=== PATIENT | male | born 1980 | race Caucasian/White ===

== ENCOUNTER 2021-11-24 17:15 | Emergency (ER) | payer SELFPAY ==
[2021-11-24 18:08] VITALS: BP 131/85; PULSE 102; RESP 21; TEMP 37.2; O2SAT 98; BMI 24.7
--- NOTE | 2021-11-24 18:37 | HMH.EDUTC ---
[facility] [place] Clinical Impression: Viral upper respiratory tract infection with cough Disposition: Home, Self-Care Condition on Discharge: Good Instructions: Cough, DI for COVID-19 (Suspected or Confirmed ), Preventing the Spread of Coronavirus Discharge Instructions Additional Instructions: *Monitor Temp, Over the counter Motrin or Tylenol as directed/as needed Tylenol every 4 hours and Motrin every 6 hours (as long as your family doctor has told you that you can take it) for fever or pain. and straight to ER if unable to lower temp less than 101.0 after medication given *Warm salt water gargles may help to soothe the throat *Throat Lozenges *Warm fluids like tea with honey may help to soothe the throat *Sleep elevated *Humidifier/Vaporizer Follow up IMMEDIATELY for new or worsening symptoms or no Noticeable improvement over the next 48-72 hours. 911 for difficulty breathing or swallowing You were tested for today for COVID19 your test result should be back in the next 24-48 hours, you may check your results on the [facility] My Health portal Make sure to take your Vitamins Vit. C Vit D and Zinc if you can take them Prescriptions: Albuterol Sulfate [Albuterol 0.083% 2.5mg/3mL neb] 2.5 mg IH Q4-6H PRN #30 each PRN Reason: Shortness Of Breath Transmission Status: Pending to [facility] Ibuprofen [Ibuprofen 800mg Tablet] 800 mg PO TIDP PRN #20 tab PRN Reason: Moderate Pain Transmission Status: Pending to [facility] guaiFENesin [Mucinex 600mg tablet] 600 mg PO BID PRN #20 tab PRN Reason: Congestion [facility] Referrals: Provider,Referral, [Primary Care Provider] - As needed Forms: Work/School Release Time of Disposition: 18:49 Medical Decision Making - Jarad Inquiry Pt receiving controlled substance: No Jarad was queried for this patient: No Vital Signs: 11/24/21 18:08 Temperature 98.9 F Temperature Source Oral Pulse Rate [Radial] 102 H Respiratory Rate 21 Blood Pressure [Right Arm] 131/85 Blood Pressure Mean [Right Arm] 100 Blood Pressure Source [Right Arm] Automatic Cuff Blood Pressure Position [Right Arm] Sitting 02 Sat by Pulse Oximetry 98 Oxygen Delivery Method Room Air Orders (Tests/Meds): ORDERS Category Date Time Status Covid-19 Nasal PCR ([facility]) Routine Lab 11/24/21 18:10 Received [facility] [place] - General Stated complaint: COVID TEST, COUGH CONGESTION v&d Time Seen by Provider: 11/24/21 18:37 Mode of Arrival: Ambulatory Source of Information: Patient Limitations: No Limitations Description of Symptoms (Recalled from Triage Doc. by RN): COUGH, FEVER, BODY ACHES, CHEST CONGESTION X 4 DAYS HEENT Symptoms (Recalled from RN notes): Yes Resp Symptoms (Recalled from RN notes): No Skin Symptoms (Recalled from RN notes): No MS Symptoms (Recalled from RN notes): Yes Functional Status (Recalled from RN notes): N/A - History of Present Illness Provider Complaint: Patient state that he has been having cough, fever, body aches, nasal congestion and chest congestion for about 4 days States that COVID is going around at work and not sure if he may have it now or not and wanted to get tested States that he is also out of his albuterol for his nebulizer and wanted to see if he could get some and ibuprofen for his fever - Related Data Previous Rx's Medication Instructions Recorded Albuterol Sulfate [Albuterol 2.5 mg IH Q4-6H PRN #30 each 11/24/21 0.083% 2.5mg/3mL neb] Ibuprofen [Ibuprofen 800mg 800 mg PO TIDP PRN #20 tab 11/24/21 Tablet] guaiFENesin [Mucinex 600mg tablet] 600 mg PO BID PRN #20 tab 11/24/21 Allergies Allergy/AdvReac Type Severity Reaction Status Date / Time NKDA - NO KNOWN DRUG Allergy Unknown Uncoded 04/17/17 15:41 ALLERGIES - Worker's Comp Is this a Worker's Comp case?: No [facility] History - Hepatitis A Screen Attestation statement:: This patient has been screened
[2021-11-24 18:57] VITALS: BP 131/85; PULSE 100; RESP 20; TEMP 37; O2SAT 98
== END 2021-11-24 18:58 | disposition home or self-care (01) ==
PROVIDERS: Emergency Provider Nurse Practitioner
DX: J06.9 Acute upper respiratory infection, unspecified (principal)
CPT/HCPCS: 99212; C9803; G0463; U0003; U0005

== ENCOUNTER 2021-12-04 17:20 | Emergency (ER) | payer SELFPAY ==
[2021-12-04 17:50] VITALS: BP 136/85; PULSE 81; RESP 19; TEMP 37; O2SAT 96; BMI 23.2
--- NOTE | 2021-12-04 18:25 | HMH.EDUTC ---
[facility] [place] Clinical Impression: Dental abscess Disposition: Home, Self-Care Condition on Discharge: Good Instructions: Tooth Abscess, Amoxicillin and Clavulanic Acid Additional Instructions: Use dental balls as you was instructed in the [facility] today Take medication as prescribed Follow up with Dentist for further treatment and evaluation Return if needed Straight to ER if any life threatening symptoms Prescriptions: Ibuprofen [Ibuprofen 800mg Tablet] 800 mg PO Q8HP PRN #20 tab PRN Reason: Moderate Pain Transmission Status: [facility] Amoxicillin/Potassium Clav [Amox-Clav 875-125 mg Tablet] 1 tab PO BID #20 tab Transmission Status: [facility] Referrals: Provider,Referral, MD [Primary Care Provider] - As needed Medical Decision Making - Jarad Inquiry Pt receiving controlled substance: No Jarad was queried for this patient: No Vital Signs: 12/04/21 17:50 Temperature 98.6 F Temperature Source Oral Pulse Rate [Left Brachial] 81 Respiratory Rate 19 Blood Pressure [Left Arm] 136/85 Blood Pressure Mean [Left Arm] 102 Blood Pressure Source [Left Arm] Automatic Cuff Blood Pressure Position [Left Arm] Sitting 02 Sat by Pulse Oximetry 96 Oxygen Delivery Method Room Air [facility] [place] - General Stated complaint: dental pain Time Seen by Provider: 12/04/21 18:25 Mode of Arrival: Ambulatory Source of Information: Patient Limitations: No Limitations Description of Symptoms (Recalled from Triage Doc. by RN): PATIENT STATES HE HAS 2 BAD TEETH (BOTTOM AND TOP) AND IS C/O DENTAL PAIN X 3 DAYS HEENT Symptoms (Recalled from RN notes): Yes Resp Symptoms (Recalled from RN notes): No Skin Symptoms (Recalled from RN notes): No MS Symptoms (Recalled from RN notes): No Functional Status (Recalled from RN notes): WNL - History of Present Illness Provider Complaint: patient states that he has two broken bad teeth on his right lower gum States that for the last 3 days the pain has got worse and he feels like his teeth are getting infected so he came in to see if he could get something until he can get into the dentist - Related Data Home Medications Medication Instructions Recorded Confirmed Buprenorphine HCl/Naloxone HCl 2 each SL DAILY 12/04/21 12/04/21 [Suboxone 8mg/2mg ODT] Previous Rx's Medication Instructions Recorded Amoxicillin/Potassium Clav 1 tab PO BID #20 tab 12/04/21 [Amox-Clav 875-125 mg Tablet] Ibuprofen [Ibuprofen 800mg 800 mg PO Q8HP PRN #20 tab 12/04/21 Tablet] Allergies Allergy/AdvReac Type Severity Reaction Status Date / Time No Known Allergies Allergy Verified 12/04/21 18:05 - Worker's Comp Is this a Worker's Comp case?: No H History - Hepatitis A Screen Attestation statement:: This patient has been screened for Hepatitis A risk factors. I have reviewed the patient's past medical history: Yes ROS Obtained: Yes All systems reviewed & no additional complaints, Yes Systems reviewed as appropriate & no additional complaints - Constitutional Constitutional: Reports system reviewed and no additional complaints, except as docu, Denies fever(s) - ENT Ears, Nose, Mouth, and Throat: Reports system reviewed and no additional complaints, except as docu, Reports dental pain - Cardiovascular Cardiovascular: Reports system reviewed and no additional complaints, except as docu - Respiratory Respiratory: Reports system reviewed and no additional complaints, except as docu - Gastrointestinal Gastrointestingal: Reports: system reviewed and no additional complaints, except as docu Physical Exam - General General appearance: alert, in no apparent distress - Expanded ENT Exam Teeth exam: Present: dental caries, gingival swelling, other (several broken decaying teeth noted on right lower gumline) - Respiratory Respiratory exam: Present: normal lung sounds bilaterally. Absent: respiratory distress - Ca
[2021-12-04 18:34] VITALS: BP 136/85; PULSE 81; RESP 19; TEMP 37; O2SAT 96
== END 2021-12-04 18:42 | disposition home or self-care (01) ==
PROVIDERS: Emergency Provider Nurse Practitioner
DX: K04.7 Periapical abscess without sinus (principal)
CPT/HCPCS: 99212; G0463

== ENCOUNTER 2022-12-10 14:16 | Emergency (ER) | payer MEDICARE, OTHER, SELFPAY ==
[2022-12-10 14:18] VITALS: BP 126/75; PULSE 66; RESP 16; TEMP 36.7; O2SAT 98; BMI 24.3
[2022-12-10 15:06] LABS: Coronavirus 19, PCR Not Detected (NotDetected); Influenza A, PCR Not Detected (NotDetected); Influenza B, PCR Not Detected (NotDetected)
[2022-12-10 15:26] LABS: Strep Scrn Group A (Rapid) Negative (Negative)
--- NOTE | 2022-12-10 16:16 | PC.NURSE ---
Patient arrived to room
--- NOTE | 2022-12-10 16:18 | PC.NURSE ---
Rounded on patient; call martinez within reach. Updated on plan of care nothing needed at this time
--- NOTE | 2022-12-10 16:19 | HMH.EDGENADL ---
Discharge Plan Disposition Patient Disposition: Home, Self-Care Condition: Good Prescriptions Prescriptions: New guanfacine 1 mg tablet extended release 24 hr 1 mg PO DAILY Qty: 7 0RF No Action buprenorphine-naloxone 1 EACH tablet, sublingual 2 each SL DAILY ibuprofen 800 MG tablet 800 mg PO Q8HP PRN (Reason: Moderate Pain) Qty: 20 0RF amoxicillin-pot clavulanate 1 EACH tablet 1 tab PO BID Qty: 20 0RF Referrals Follow up/Referrals: Provider,Referral, MD [Primary Care Provider] - See instructions Clinical Impressions Clinical Impression: Viral upper respiratory tract infection with cough Discharge ED Provider: Gino Burton General Adult HPI General Chief complaint: Upper Respiratory Infection Stated complaint: cough, fever, cold sweats,chills Time Seen by Provider: 12/10/22 16:19 Mode of Arrival: Ambulatory Source of Information: Patient Limitations: No Limitations Description of Symptoms (Recalled from ER Triage Doc. by RN): Presents to ED with c/o of cough/sore throat/fever/bodyaches x3 days. Patient reports taking Tylenol @ approx. 1200 but unsure of the amount. Denies N/V/D. History of Present Illness HPI narrative: Patient presents for evaluation of sore throat, chills, mild frontal headache, malaise for 3 days, no known sick contacts, no globus sensation, no odynophagia, no respiratory distress, has not had similar symptoms before, does describe smoking history. Chief complaint at this time is frequent cough that is nonproductive, denies chronic medical issues. Has been able to tolerate p.o., no nuchal rigidity or dental pain or pain elsewhere. Related Data Home Medications Medication Instructions Recorded Confirmed buprenorphine 8 mg-naloxone 2 mg 2 each sublingual DAILY . 12/04/21 12/04/21 sublingual tablet Previous Rx's Medication Instructions Recorded amoxicillin 875 mg-potassium 1 tab PO BID #20 tabs 12/04/21 clavulanate 125 mg tablet ibuprofen 800 mg tablet 800 mg PO Q8HP PRN Moderate Pain 12/04/21 #20 tabs guanfacine 1 mg tablet,extended 1 mg PO DAILY #7 tabs 12/10/22 release 24 hr Allergies Allergy/AdvReac Type Severity Reaction Status Date / Time No Known Allergies Allergy Verified 12/04/21 18:05 [facility] Disclaimer: The information contained in this section may have been updated after the patient was seen, as this information can be updated by other users. Social History Smoking Status: Current every day smoker alcohol intake: current current occupational status: employed Travel in the last 8 weeks: None ROS Obtained: Yes Systems reviewed as appropriate & no additional complaints except as documented Physical Exam General General appearance: alert and in no apparent distress Head Head exam: atraumatic and normocephalic Eye Eye exam: Present normal appearance ENT ENT exam: Present other (Mild oropharyngeal erythema) Neck Neck exam: Present normal inspection Chest Chest inspection: Present normal inspection and symmetric chest wall rise Respiratory Respiratory exam: Present normal lung sounds bilaterally; Absent respiratory distress Cardiovascular Cardiovascular exam: Present regular rate and normal rhythm Abdominal Exam Abdominal exam: Present soft Neurological Exam Neurological exam: Present alert and oriented X3 Psychiatric Psychiatric exam: Present normal affect and normal mood Skin Skin exam: Present warm and dry Medical Decision Making Medical Records Medical records reviewed: Yes I reviewed the patient's medical records. Jarad Inquiry Pt receiving controlled substance: No Vital Signs: 12/10/22 14:18 12/10/22 16:52 12/10/22 16:52 Temperature 98.1 F Temperature Source Oral Pulse Rate 78 81 Pulse Rate [Right] 66 Respiratory Rate 16 Blood Pressure Blood Pressure [Left Arm] 126/75 Blood Pressure Mean [Left Arm] 92 Blood Pressure Source Blood Pressure Source [Left Arm] Automatic Cuff Blood Pressure Position Blood Pressure Position [Left Arm] Sitting 02 Sat by Pulse Oximetry 98 Oxygen Delivery Method Room Air 12/10/22 17:46 Temperature 98.1 F Temperature Source Oral Pulse Rate 64 Pulse Rate [Right] Respiratory Rate 18 Blood Pressure 131/89 Blood Pressure [Left Arm] Blood Pressure Mean [Left Arm] Blood Pressure Source Automatic Cuff Blood Pressure Source [Left Arm] Blood Pressure Position Sitting Blood Pressure Position [Left Arm] 02 Sat by Pulse Oximetry Oxygen Delivery Method Room Air Lab Data Lab Results 12/10/22 14:57: SARS-CoV-2 (PCR) Not detected, Influenza A Untype (PCR) Not detected, Influenza Type B (PCR) Not detected, Group A Strep Rapid Negative Orders (Tests/Meds): ED MEDICATIONS Discontinued Medications Generic Name Dose Route Start Last Admin Trade Name Freq PRN Reason Stop Dose Admin Albuterol/Ipratropium 3 ml 12/10/22 16:34 12/10/22 16:51 Ipratropium/Albuterol 3 Ml Neb IH 12/10/22 16:35 3 ml ONCE ONE Administration ORDERS Category Date Time Status CXR 2 view (NOT portable) [XR chest 2V] Stat Exams 12/10/22 16:34 Completed Rapid PCR Covid and Flu A/B Stat Lab 12/10/22 14:57 Completed Rapid Strep Scrn Group A [Strep Scrn Group A (Rapid)] Lab 12/10/22 14:57 Completed Stat Strep Screen Confirmation Stat Micro 12/10/22 14:57 Received Medical Decision Narrative: Patient with history and exam per above presenting for evaluation of several upper respiratory symptoms, with mild oropharyngeal erythema, no evidence of peritonsillar abscess, no respiratory distress, lungs clear to auscultation Diagnoses considered include bronchitis, viral URI, peritonsillar abscess, strep pharyngitis, deep space abscess ED workup/treatment included: COVID test, chest x-ray, flu test, strep swab Labs independently interpreted by me, significant for no acute findings Imaging was independently visualized and interpreted by me, significant for no acute findings Symptoms at this time are thought to be most consistent with other unspecified viral URI, otherwise nontoxic-appearing, no focal consolidation or evidence of deep space abscess I discussed my clinical impression with patient and answered all questions. At this time, given reassuring workup and exam, I discussed that I have a low index of suspicion for any acute pathology necessitating inpatient management. Specific return precautions were given, with understanding and agreement. Patient will follow up with primary care provider as needed. I prescribed the following medications upon discharge: Guanfacine 1 mg p.o. daily x7 Critical Care Time Critical Care Time Critical Care Time: No Attestation: On 12/10/22, the high probability of a clinically significant, sudden or life threatening deterioration of the following system(s) required my full and direct attention, intervention and personal management. The time I documented below is in addition to time spent performing reported procedures but includes the following listed in this critical care notation.
--- NOTE | 2022-12-10 16:34 | XR_ITS ---
PROCEDURE INFORMATION: Exam: XR Chest Exam date and time: 12/10/2022 4:41 PM Age: 42 years old Clinical indication: Cough and shortness of breath; Patient HX: Shortness of breath and cough for 3 days. Smoker. ; Additional info: SOA, cough TECHNIQUE: Imaging protocol: Radiologic exam of the chest. Views: 1 view. COMPARISON: No relevant prior studies available. FINDINGS: Lungs: Unremarkable. No consolidation. Pleural spaces: Unremarkable. No pleural effusion. No pneumothorax. Heart/Mediastinum: Unremarkable. No cardiomegaly. Bones/joints: Unremarkable. IMPRESSION: No acute findings.
--- NOTE | 2022-12-10 16:38 | PC.NURSE ---
RESP CALLED FOR DUO NEB
--- NOTE | 2022-12-10 16:48 | PC.NURSE ---
RAD taking patient to XR
[2022-12-10] MEDS: IPRATROPIUM/ALBUTEROL 3 ML NEB IH (16:51)
[2022-12-10 16:52] VITALS: PULSE 78; PULSE 81
--- NOTE | 2022-12-10 16:53 | PC.NURSE ---
pt return from xray
[2022-12-10 17:46] VITALS: BP 131/89; PULSE 64; RESP 18; TEMP 36.7; O2SAT 98
== END 2022-12-10 17:47 | disposition home or self-care (01) ==
PROVIDERS: Emergency Medicine; Emergency Provider Emergency Medicine
DX: R50.9 Fever, unspecified (principal); J06.9 Acute upper respiratory infection, unspecified; R51.9 Headache, unspecified; F17.200 Nicotine dependence, unspecified, uncomplicated
CPT/HCPCS: 71046; 87430; 87636; 99284

== ENCOUNTER → 2023-02-16 15:41 | Outpatient (CLI) | payer OTHER, MEDICARE, SELFPAY ==
--- NOTE | 2023-02-16 15:52 | MR_ITS ---
PROCEDURE INFORMATION: Exam: MR Right Upper Extremity Joint Without and With Contrast; Wrist Exam date and time: 02/16/2023 4:05 PM Age: 42 years old Clinical indication: Pain; Wrist; Right; Additional info: Ganglion cyst of right wrist. No palpable mass. Wrist pain TECHNIQUE: Imaging protocol: Magnetic resonance imaging of the right upper extremity without and with contrast. Exam focused on the wrist. Contrast material: PROHANCE; Contrast volume: 20 ml; Contrast route: IV; COMPARISON: No relevant prior studies available. FINDINGS: Limitations: The symptomatic region of the wrist was not indicated. Bones/joints: A mild effusion involves the fifth carpometacarpal joint. A mild amount of fluid is present in the pisiform recess. There are multifocal trace joint effusions. There is no acute fracture or dislocation. No aggressive bone lesions are present. Scapholunate ligament: Unremarkable. No tear. Lunotriquetral ligament: Unremarkable. No tear. Triangular fibrocartilage complex: Unremarkable. No tear. Flexor compartment tendons: Unremarkable. No tear. Extensor compartment tendons: A short-segment longitudinal tear involves the extensor carpi ulnaris tendon at the level of the proximal carpal row. Soft tissues: A tubular focus of fluid along the ulnar border of the hamate may represent a small ganglion or synovial cyst this collection measures 0.9 x 0.3 cm (series 9/images 6-7 and series 7/images 8-11). IMPRESSION: 1. Short-segment longitudinal tear of the extensor carpi ulnaris tendon at the level of the proximal carpal row. 2. Tubular focus of fluid along the ulnar border of the hamate measuring 0.9 x 0.3 cm that may represent a small ganglion or synovial cyst.
== END ==
PROVIDERS: Visit Provider Orthopaedic Surgery Hand Surgery
DX: M67.431 Ganglion, right wrist (principal)
CPT/HCPCS: 73223; A9576

== ENCOUNTER 2023-11-11 21:36 | Emergency (ER) | payer MEDICARE, SELFPAY ==
--- NOTE | 2023-11-11 21:49 | ED_ITS ---
<Statement entered by Keith Almodovar MD - 11/11/23 22:23> I was consulted by the HARINDER, and we discussed the complexity of the problems being addressed. I approved the treatment and management plan for this patient's care in the emergency department, thus performing a substantive portion of the medical decision making. Keith Almodovar MD Discharge Plan Disposition Chief Complaint: Psychiatric Symptoms Prescriptions Prescriptions: No Action buprenorphine-naloxone 1 EACH tablet, sublingual 2 each SL DAILY ibuprofen 800 MG tablet 800 mg PO Q8HP PRN (Reason: Moderate Pain) Qty: 20 0RF amoxicillin-pot clavulanate 1 EACH tablet 1 tab PO BID Qty: 20 0RF guanfacine 1 mg tablet extended release 24 hr 1 mg PO DAILY Qty: 7 0RF Referrals Follow up/Referrals: Provider,MD Alfa [Primary Care Provider] - See instructions Discharge ED Provider: Keith Almodovar General Adult HPI General Chief complaint: Psychiatric Symptoms Stated complaint: Evaluation form mental status Time Seen by Provider: 11/11/23 21:49 History of Present Illness HPI narrative: Patient presents for evaluation of alcohol abuse and requests rehab. He denies chest pain fever chills hemoptysis hematochezia melena. He is currently intoxicated. He has been drinking 1/5 of bourbon a day for months. He denies suicidal homicidal ideations. Related Data Home Medications Medication Instructions Recorded Confirmed buprenorphine 8 mg-naloxone 2 mg 2 each sublingual DAILY . 12/04/21 12/04/21 sublingual tablet Previous Rx's Medication Instructions Recorded amoxicillin 875 mg-potassium 1 tab PO BID #20 tabs 12/04/21 clavulanate 125 mg tablet ibuprofen 800 mg tablet 800 mg PO Q8HP PRN Moderate Pain 12/04/21 #20 tabs guanfacine 1 mg tablet,extended 1 mg PO DAILY #7 tabs 12/10/22 release 24 hr Allergies Allergy/AdvReac Type Severity Reaction Status Date / Time No Known Allergies Allergy Verified 12/04/21 18:05 [facility] Disclaimer: The information contained in this section may have been updated after the patient was seen, as this information can be updated by other users. Social History (Updated 12/10/22 @ 23:25 by Gino Burton MD) Smoking Status: Unknown if ever smoked alcohol intake: current current occupational status: employed Travel in the last 8 weeks: None ROS Obtained: Yes Systems reviewed as appropriate & no additional complaints except as documented Physical Exam General General appearance: in no apparent distress and appears intoxicated Head Head exam: atraumatic and normal inspection Eye Eye exam: Present normal appearance and EOMI ENT ENT exam: Present normal exam, normal oropharynx and mucous membranes moist Neck Neck exam: Present lymphadenopathy Respiratory Respiratory exam: Present normal lung sounds bilaterally Cardiovascular Cardiovascular exam: Present regular rate, normal rhythm and normal heart sounds Abdominal Exam Abdominal exam: Present soft; Absent tenderness Extremities Exam Extremities exam: Present normal inspection and full ROM Back Exam Back exam: Present normal inspection and full ROM Neurological Exam Neurological exam: Present oriented X3 and CN II-XII intact; Absent normal gait (Patient is a stumbling gait but actually knows person date and circumstance and is obviously intoxicated with slurred speech) Psychiatric Psychiatric exam: Present other (Patient is obviously intoxicated and difficult to redirect but cooperative) Skin Skin exam: Present warm, dry and normal color Medical Decision Making Medical Records Medical records reviewed: Yes I reviewed the patient's medical records. Jarad Inquiry Pt receiving controlled substance: No Vital Signs: 11/11/23 21:53 Temperature 98.2 F Temperature Source Oral Pulse Rate [Right Brachial] 131 H Respiratory Rate 16 Blood Pressure [Right Arm] 146/112 H Blood Pressure Mean [Right Arm] 123 Blood Pressure Source [Right Arm] Automatic Cuff Blood Pressure Position [Right Arm] Sitting 02 Sat by Pulse Oximetry 95 Oxygen Delivery Method Room Air Lab Data Lab results reviewed: Yes I reviewed the patient's lab results. Orders (Tests/Meds): ED MEDICATIONS Generic Name Dose Route Start Last Admin Trade Name Jp PRN Reason Stop Dose Admin Multivitamins 10 ml/ Thiamine 1,015 mls @ 150 mls/hr 11/11/23 22:00 HCl 100 mg/ Magnesium Sulfate IV 11/12/23 04:45 2 gm/ Lactated Ringer's .[id number] [facility] ORDERS Category Date Time Status CBC w/Auto Diff [Complete Blood Count Auto Diff] Stat Lab 11/11/23 21:58 Ordered CMP [Comprehensive Metabolic Panel] Stat Lab 11/11/23 21:58 Ordered Lactic Acid Stat Lab 11/11/23 21:59 Ordered Lipase Stat Lab 11/11/23 21:59 Ordered Magnesium Stat Lab 11/11/23 21:59 Ordered UA [Urinalysis and Microscopic] Stat Lab 11/11/23 21:59 Ordered UDS [Drug Screen,Urine] Stat Lab 11/11/23 21:59 Ordered Medical Decision Narrative: In summary patient is a 43-year-old male who presents to the emergency department for evaluation of alcohol abuse and requesting rehabilitation. Patient is hemodynamically stable upon arrival, afebrile. Zickel exam shows a very intoxicated but awake cooperative and interactive 43-year-old male in no acute distress with no focal neurologic deficits. Differential diagnosis includes alcohol intoxication versus other illicit intoxication sequela of alcohol abuse including liver disease pancreatitis etc. Initial workup will be conducted with hematologic labs urinalysis drug screen. Initial interventions include rally pack crystalloid bolus. The patient was placed in observation status at 2219. Medical necessity for observational status is alcohol intoxication. The patient was provided serial reevaluations cardiac monitoring and continuous pulse oximetry while awaiting results. Patient handed off to Dr. Ro at 2300 hrs. Critical Care Critical Care Time Critical Care Time: No
[2023-11-11 21:53] VITALS: BP 146/112; PULSE 131; RESP 16; TEMP 36.8; O2SAT 95; BMI 29.7
[2023-11-11 22:35] LABS: Basophils # 0.2 K/mm3 (0-0.2); Basophils % 1.3 % (0.1-2.0); Eosinophils # 0.2 K/mm3 (0.0-0.4); Eosinophils % 1.3 % (0.1-12.0); Hematocrit 48.6 % (42.0-52.0); Hemoglobin 16.6 g/dL (14.1-18.0); Lymphocytes % 49.2 % (10-50); Mean Corpuscular HGB Conc 34.2 g/dL (31.8-35.4); Mean Corpuscular Hemoglobin 31.7 pg (27.0-31.2); Mean Corpuscular Volume 92.8 fl (80-94); Mean Platelet Volume 7.6 fl (7.4-10.4); Monocytes # 0.4 K/mm3 (0.1-1.0); Monocytes % 3.1 % (1.7-9.3); Neutrophils # 5.5 K/mm3 (1.8-7.8); Neutrophils % 45.1 % (37.0-80.0); Platelet Count 332 K/mm3 (142-424); Red Blood Count 5.24 M/mm3 (4.60-6.20); Red Cell Distribution Width 14.6 % (11.5-17.5); White Blood Count 12.2 K/mm3 (4.8-10.8)
[2023-11-11 22:36] LABS: Chloride 111 mmol/L (98-107); Potassium 3.4 mmoL/L (3.5-5.1); Sodium 144 mmol/L (136-145)
[2023-11-11 22:38] LABS: Blood Urea Nitrogen 11 mg/dl (9-20); Creatinine Clearance Estimated 200 mL/min (50-200); Estimated Glomerular Filt Rate 124 ml/min (>60); GFR (African American) 150 ML/MIN (>60)
[2023-11-11 22:39] LABS: Alanine Aminotransferase 329 U/L (12-78); Albumin/Globulin Ratio 1.1 (1.1-1.8); Alkaline Phosphatase 111 U/L (38-126); Anion Gap 14.4 mEq/L (5-15); Aspartate Amino Transferase 335 U/L (17-59); Bilirubin,Total 0.4 mg/dl (0.2-1.3); Calcium 9.3 mg/dl (8.4-10.2); Carbon Dioxide 22 mmol/L (22.0-30.0); Globulin 3.7 g/dL (1.3-3.2); Glucose 192 mg/dl (74-100); Lipase 126 U/L (23-300); Total Protein,Serum 7.7 g/dl (6.3-8.2)
[2023-11-11 22:40] LABS: Acetaminophen < 10 ug/ml (10-30); Magnesium 1.9 mg/dl (1.6-2.3); Salicylate < 1.0 mg/dL (2.0-20.0)
[2023-11-11] MEDS: MVI, ADULT NO.1 WITH VIT K 10 ML, THIAMINE HCL 100 MG, MAGNESIUM SULFATE 2 GM in LACTAT... 150 ML IV (22:40)
[2023-11-11 22:57] LABS: Ethyl Alcohol 283 mg/dl (0-10)
[2023-11-12 00:14] VITALS: BP 148/78; PULSE 90; RESP 20; TEMP 36.7; O2SAT 99
== END 2023-11-12 00:15 | disposition home or self-care (01) ==
PROVIDERS: Physician Assistant; Emergency Provider Emergency Medicine
DX: F10.129 Alcohol abuse with intoxication, unspecified (principal); K70.10 Alcoholic hepatitis without ascites; R74.01 Elevation of levels of liver transaminase levels; Y90.8 Blood alcohol level of 240 mg/100 ml or more
CPT/HCPCS: 80053; 80320; 80329; 83605; 83690; 83735; 85025; 96365; 96366; 99284; G0480; J3411; J7120

== ENCOUNTER 2024-02-05 14:44 | Emergency (ER) | payer MEDICARE, SELFPAY ==
[2024-02-05 15:07] VITALS: BP 130/88; PULSE 81; RESP 16; TEMP 36.9; O2SAT 98; BMI 26.7
--- NOTE | 2024-02-05 15:12 | EXP.UTC ---
Discharge Plan Disposition Patient Disposition: Home, Self-Care Condition: Good Prescriptions Prescriptions: No Action buprenorphine-naloxone 1 EACH tablet, sublingual 2 each SL DAILY ibuprofen 800 MG tablet 800 mg PO Q8HP PRN (Reason: Moderate Pain) Qty: 20 0RF amoxicillin-pot clavulanate 1 EACH tablet 1 tab PO BID Qty: 20 0RF guanfacine 1 mg tablet extended release 24 hr 1 mg PO DAILY Qty: 7 0RF Referrals Follow up/Referrals: Provider,Referral, MD [Primary Care Provider] - See instructions Activity Restrictions/Add. Instructions Additional Instructions/Restrictions: *Monitor Temp, Over the counter Motrin or Tylenol as directed/as needed Tylenol every 4 hours and Motrin every 6 hours (as long as your family doctor has told you that you can take it) for fever or pain. and straight to ER if unable to lower temp less than 101.0 after medication given *Warm salt water gargles may help to soothe the throat *Throat Lozenges? *Warm fluids like tea with honey may help to soothe the throat? *Sleep elevated *Humidifier/Vaporizer Follow up IMMEDIATELY for new or worsening symptoms or no Noticeable improvement over the next 48-72 hours. 911 for difficulty breathing or swallowing You were tested for today for COVID/Flu your test result should be back in the next 24hours, you may check your results on the [facility] Portal Clinical Impressions Clinical Impression: Viral syndrome Instructions Patient Instructions: DI for Viral Syndrome Print Language Print Language: Greek Discharge ED Provider: Lluvia Barber [facility] HPI General Stated complaint: congestion cough Mode of Arrival: Ambulatory Source of Information: Patient Limitations: No Limitations Time Seen by Provider: 02/05/24 15:13 Description of Symptoms (Recalled from Triage Doc. by RN): Reports flu like symptoms. HEENT Symptoms (Recalled from RN notes): Yes Resp Symptoms (Recalled from RN notes): No Skin Symptoms (Recalled from RN notes): No MS Symptoms (Recalled from RN notes): No Functional Status (Recalled from RN notes): wnl History of Present Illness Provider Complaint: Patient states he has been having flu/COVID like symptoms bodyaches, chills, cough and headache States he was around someone last week that had COVID and now he is worried he may have it too Related Data Home Medications ?Medication ?Instructions ?Recorded ?Confirmed buprenorphine 8 mg-naloxone 2 mg 2 each sublingual DAILY . 12/04/21 12/04/21 sublingual tablet Previous Rx's ?Medication ?Instructions ?Recorded amoxicillin 875 mg-potassium 1 tab PO BID #20 tabs 12/04/21 clavulanate 125 mg tablet ibuprofen 800 mg tablet 800 mg PO Q8HP PRN Moderate Pain 12/04/21 #20 tabs guanfacine 1 mg tablet,extended 1 mg PO DAILY #7 tabs 12/10/22 release 24 hr Allergies Allergy/AdvReac Type Severity Reaction Status Date / Time No Known Allergies Allergy Verified 12/04/21 18:05 Worker's Comp Is this a Worker's Comp case?: No PFSH [facility] Disclaimer: The information contained in this section may have been updated after the patient was seen, as this information can be updated by other users. Social History (Updated 12/10/22 @ 23:25 by Gino Burton MD) Smoking Status: Unknown if ever smoked alcohol intake: current current occupational status: employed Travel in the last 8 weeks: None ROS Obtained: Yes All systems reviewed & no additional complaints except as documented and Yes Systems reviewed as appropriate & no additional complaints except as documented Constitutional Constitutional: Reports system reviewed and no additional complaints, except as documented, Reports as per HPI, Reports body ache, Reports chills and Reports headache(s) ENT Ears, Nose, Mouth, and Throat: Reports system reviewed and no additional complaints, except as documented, Reports as per HPI, Reports headache(s) and Reports nasal congestion Cardiovascular Cardiovascular: Reports system reviewed and no additional complaints, except as documented and Reports as per HPI Respiratory Respiratory: Reports system reviewed and no additional complaints, except as documented, Reports as per HPI, Denies shortness of breath, Denies chest congestion and Reports cough Gastrointestinal Gastrointestingal: Reports system reviewed and no additional complaints, except as documented and as per HPI Neurologic Neurologic: Reports headache(s) Physical Exam General General appearance: alert and in no apparent distress ENT ENT exam: Present normal exam, normal oropharynx, mucous membranes moist and TM's normal bilaterally Respiratory Respiratory exam: Present normal lung sounds bilaterally; Absent respiratory distress or wheezes Cardiovascular Cardiovascular exam: Present regular rate, normal rhythm and normal heart sounds Abdominal Exam Abdominal exam: Present soft and normal bowel sounds; Absent distention or tenderness Neurological Exam Neurological exam: Present alert, oriented X3 and normal gait Medical Decision Making Medical Records Screening: Per USPSTF and CDC recommendations, given the prevalence of disease in our region, it is our hospital?s policy to screen for HIV and viral Hepatitis for all patients aged 18 and over and those with ongoing risk factors. Jarad Inquiry Pt receiving controlled substance: No Jarad was queried for this patient: No Vital Signs: 02/05/24 15:07 Temperature 98.5 F Temperature Source Oral Pulse Rate [Radial] 81 Respiratory Rate 16 Blood Pressure [Right Arm] 130/88 Blood Pressure Mean [Right Arm] 102 Blood Pressure Source [Right Arm] Automatic Cuff Blood Pressure Position [Right Arm] Sitting 02 Sat by Pulse Oximetry 98 Oxygen Delivery Method Room Air Orders (Tests/Meds): ORDERS Category Date Time Status Rapid PCR Covid and Flu A/B Stat Lab 02/05/24 15:06 Ordered
[2024-02-05 15:22] LABS: Coronavirus 19, PCR Not Detected (NotDetected); Influenza A, PCR Not Detected (NotDetected); Influenza B, PCR Not Detected (NotDetected)
[2024-02-05 15:27] VITALS: BP 130/88; PULSE 81; RESP 16; TEMP 36.9; O2SAT 98
== END 2024-02-05 15:28 | disposition home or self-care (01) ==
PROVIDERS: Emergency Provider Nurse Practitioner
DX: B34.9 Viral infection, unspecified (principal)
CPT/HCPCS: 87636; 99213; G0381

== ENCOUNTER 2024-05-10 17:26 | Emergency (ER) | payer MEDICARE, SELFPAY ==
[2024-05-10 17:26] VITALS: BP 141/88; PULSE 109; RESP 20; TEMP 37.1; O2SAT 97; BMI 26.7
--- NOTE | 2024-05-10 17:31 | ECG_ITS ---
APPROVED REPORT Exam: Resting ECG HR:99 bpm ECG Measurements Heart Rate [address] 147 P 69 QRSd 96 QRS 73 QT 335 T 49 QTc 392 Conclusion SINUS RHYTHM POSSIBLE INFERIOR MYOCARDIAL INFARCTION , OF INDETERMINATE AGE [30 ms Q WAVE IN II/aVF] ABNORMAL ECG UNCONFIRMED REPORT Electronically signed by : Richie Haji, 05/10/2024 23:11:22
--- NOTE | 2024-05-10 17:35 | XR_ITS ---
PROCEDURE INFORMATION: Exam: XR Chest Exam date and time: 05/10/2024 5:36 PM Age: 43 years old Clinical indication: Pain; Other: Rib; Additional info: Rib pain TECHNIQUE: Imaging protocol: Radiologic exam of the chest. Views: 2 views. COMPARISON: CR XR CHEST 2V 12/10/2022 4:41 PM FINDINGS: Lungs: Unremarkable. No consolidation. Pleural spaces: Unremarkable. No pleural effusion. No pneumothorax. Heart/Mediastinum: Unremarkable. No cardiomegaly. Bones/joints: Unremarkable. IMPRESSION: No acute findings.
[2024-05-10 17:42] LABS: Basophils # 0.1 K/mm3 (0-0.2); Basophils % 0.7 % (0.1-2.0); Eosinophils # 0.3 K/mm3 (0.0-0.4); Eosinophils % 3.3 % (0.1-12.0); Hematocrit 42.5 % (42.0-52.0); Hemoglobin 15.4 g/dL (14.1-18.0); Lymphocytes # 3.3 K/mm3 (0.7-4.5); Lymphocytes % 37.6 % (10-50); Mean Corpuscular HGB Conc 36.2 g/dL (31.8-35.4); Mean Corpuscular Hemoglobin 30.8 pg (27.0-31.2); Mean Platelet Volume 10.3 fl (7.4-10.4); Monocytes # 0.8 K/mm3 (0.1-1.0); Monocytes % 8.5 % (1.7-9.3); Neutrophils # 4.4 K/mm3 (1.8-7.8); Neutrophils % 49.7 % (37.0-80.0); Platelet Count 248 K/mm3 (142-424); Red Cell Distribution Width 12.3 % (11.5-17.5); White Blood Count 8.9 K/mm3 (4.8-10.8)
[2024-05-10 17:59] LABS: Creatine Kinase 81 U/L (55-170)
[2024-05-10 18:00] VITALS: BP 132/73; PULSE 102; RESP 13; O2SAT 97
[2024-05-10 18:13] LABS: Troponin I < 0.01 ng/ml (0.00-0.034)
[2024-05-10 18:15] VITALS: BP 127/83; PULSE 99; RESP 18; O2SAT 96
[2024-05-10 18:30] VITALS: BP 130/66; PULSE 89; RESP 19; O2SAT 91
--- NOTE | 2024-05-10 18:41 | ED_ITS ---
<Statement entered by Tawanna Haji MD - 05/10/24 23:08> I was consulted by the HARINDER, and we discussed the complexity of the problems being addressed. I approved the treatment and management plan for this patient's care in the emergency department, thus performing a substantive portion of the medical decision making. Tawanna Haji MD, CHIKA, FACEP Discharge Plan Disposition Patient Disposition: Home, Self-Care Condition: Good Prescriptions Prescriptions: No Action buprenorphine-naloxone 1 EACH tablet, sublingual 2 each SL DAILY ibuprofen 800 MG tablet 800 mg PO Q8HP PRN (Reason: Moderate Pain) Qty: 20 0RF amoxicillin-pot clavulanate 1 EACH tablet 1 tab PO BID Qty: 20 0RF guanfacine 1 mg tablet extended release 24 hr 1 mg PO DAILY Qty: 7 0RF Referrals Follow up/Referrals: Provider,Referral, [Primary Care Provider] - See instructions Activity Restrictions/Add. Instructions Additional Instructions/Restrictions: Workup was negative. If any worsening complaints or problems occur please return to the ED. Clinical Impressions Clinical Impression: Electrocution Instructions Patient Instructions: DI for Atypical Chest Pain Print Language Print Language: Macanese Discharge ED Provider: Tawanna Haji General Adult HPI General Chief complaint: Chest Pain Stated complaint: chest pain Time Seen by Provider: 05/10/24 17:28 Mode of Arrival: Ambulatory Source of Information: Patient Limitations: No Limitations Description of Symptoms (Recalled from ER Triage Doc. by RN): got electrocuted in his bathroom. standing water and a heater was plugged in. now feels fluttering in his chest. 30 mins ago. History of Present Illness HPI narrative: This is a 43-year-old male who presents to the ED today for complaint of fluttering of his heart after being electrocuted by his heater in his bathroom. He went to use the bathroom and the toilet overflowed and there was a an electric heat or plugged in. He felt shaky as he was unplugging the heater and this shaking stopped once he unplugged it. States that he went blank for second and the tingling stopped and he wanted to come get this checked out. He denies any health problems other than hep C. Related Data Home Medications ?Medication ?Instructions ?Recorded ?Confirmed buprenorphine 8 mg-naloxone 2 mg 2 each sublingual DAILY . 12/04/21 12/04/21 sublingual tablet Previous Rx's ?Medication ?Instructions ?Recorded amoxicillin 875 mg-potassium 1 tab PO BID #20 tabs 12/04/21 clavulanate 125 mg tablet ibuprofen 800 mg tablet 800 mg PO Q8HP PRN Moderate Pain 12/04/21 #20 tabs guanfacine 1 mg tablet,extended 1 mg PO DAILY #7 tabs 12/10/22 release 24 hr Allergies Allergy/AdvReac Type Severity Reaction Status Date / Time No Known Allergies Allergy Verified 12/04/21 18:05 [facility] Disclaimer: The information contained in this section may have been updated after the patient was seen, as this information can be updated by other users. Social History (Updated 12/10/22 @ 23:25 by Gino Burton MD) Smoking Status: Current every day smoker alcohol intake: current current occupational status: employed Travel in the last 8 weeks: None Have you lived/traveled outside [place] in past 30 days?: No Contact w/someone who lives/traveled outside US past 30 days?: No Exposure to someone with infectious disease in past 14 days?: No Do you have a fever (greater than 100.4 F or 38 C)?: No Have you tested positive for COVID-19: No Exposed to someone with COVID-19 in past 14 days?: No Do you have a sore throat?: No Do you have a cough?: No Do you have any weakness?: No Do you have any diarrhea?: No Are you experiencing any unusual bleeding?: No Do you have any muscle aches/pain?: No Do you have any abdominal pain?: No Are you experiencing loss of taste or smell?: No ROS Obtained: Yes Systems reviewed as appropriate & no additional complaints except as documented Constitutional Constitutional: Reports as per HPI Physical Exam General General appearance: alert and in no apparent distress Head Head exam: normocephalic Eye Eye exam: Present normal appearance and PERRL ENT ENT exam: Present mucous membranes moist Neck Neck exam: Present normal inspection and trachea midline Chest Chest inspection: Present normal inspection and symmetric chest wall rise Respiratory Respiratory exam: Present normal lung sounds bilaterally Cardiovascular Cardiovascular exam: Present regular rate, tachycardia, normal heart sounds, +S1 and +S2 Abdominal Exam Abdominal exam: Present soft and normal bowel sounds Extremities Exam Extremities exam: Present normal inspection, full ROM and normal capillary refill Back Exam Back exam: Present full ROM Neurological Exam Neurological exam: Present alert, oriented X3 and normal gait Psychiatric Psychiatric exam: Present normal affect and normal mood Skin Skin exam: Present warm and dry Medical Decision Making Medical Records Medical records reviewed: Yes I reviewed the patient's medical records. Screening: Per USPSTF and CDC recommendations, given the prevalence of disease in our region, it is our hospital?s policy to screen for HIV and viral Hepatitis for all patients aged 18 and over and those with ongoing risk factors. Jarad Inquiry Pt receiving controlled substance: No Jarad was queried for this patient: No Vital Signs: 05/10/24 17:26 05/10/24 18:00 05/10/24 18:15 Temperature 98.7 F Temperature Source Oral Pulse Rate 102 H 99 H Pulse Rate [Right] 109 H Respiratory Rate 20 13 18 Blood Pressure 132/73 127/83 Blood Pressure [Right Arm] 141/88 H Blood Pressure Mean [Right Arm] 105 02 Sat by Pulse Oximetry 97 97 96 Oxygen Delivery Method Room Air 05/10/24 18:30 Temperature Temperature Source Pulse Rate 89 Pulse Rate [Right] Respiratory Rate 19 Blood Pressure 130/66 Blood Pressure [Right Arm] Blood Pressure Mean [Right Arm] 02 Sat by Pulse Oximetry 91 L Oxygen Delivery Method Lab Data Lab Results 05/10/24 17:35: WBC 8.9, RBC 5.00, Hgb 15.4, Hct 42.5, MCV 85.0, MCH 30.8, MCHC 36.2 H, RDW 12.3, Plt Count 248, MPV 10.3, Neut % (Auto) 49.7, Lymph % (Auto) 37.6, [place] % (Auto) 8.5, Eos % (Auto) 3.3, Baso % (Auto) 0.7, Neut # (Auto) 4.4, Lymph # (Auto) 3.3, [place] # (Auto) 0.8, Eos # (Auto) 0.3, Baso # (Auto) 0.1, Troponin I < 0.01 05/10/24 17:45: Total Creatine Kinase 81 05/10/24 17:35 Orders (Tests/Meds): ORDERS Category Date Time Status Chest XR 2 view (NOT portable) [XR chest 2V] Stat Exams 05/10/24 17:35 Completed CBC [Complete Blood Count Auto Diff] Stat Lab 05/10/24 17:35 Completed CK [Creatine Kinase] Stat Lab 05/10/24 17:45 Completed Comprehensive Metabolic Panel Stat Lab 05/10/24 17:35 Received HIV Combo Stat Lab 05/10/24 17:45 Received Hepatitis C Ab Qual. W/ RFX Stat Lab 05/10/24 17:35 Results Lipase Stat Lab 05/10/24 17:35 Received Trop I [Troponin I] Stat Lab 05/10/24 17:35 Results Troponin I Q3H Lab 05/10/24 20:45 Ordered Troponin I Q3H Lab 05/10/24 23:45 Ordered Medical Decision Narrative: Insert review patient is a 43-year-old male presenting to the emergency department for evaluation of electrocution. Patient is hemodynamically stable and nontoxic-appearing upon arrival, afebrile. Differential diagnosis includes cardiac dysrhythmias. Workup will be conducted with hematologic labs, specific imaging including chest x-ray. Initial inventions include labs and x-ray. Initial workup reviewed by me as negative. Imaging informally interpreted by me and remarkable for nothing acute. Formal imaging read remarkable for nothing acute. Upon repeat evaluation patient's pain is improved. Patient will follow- up with PCP. Critical Care Critical Care Time Critical Care Time: No
[2024-05-10 18:46] VITALS: BP 111/75; PULSE 98; RESP 17; O2SAT 93
[2024-05-10 19:04] VITALS: BP 115/83; PULSE 102; RESP 18; TEMP 37.1; O2SAT 97
[2024-05-10 19:31] LABS: Albumin Level 3.3 g/dl (3.5-5.0); Chloride 104 mmol/L (98-107); Potassium 4.4 mmoL/L (3.5-5.1); Sodium 133 mmol/L (136-145)
[2024-05-10 19:34] LABS: Alanine Aminotransferase 159 U/L (12-78); Alkaline Phosphatase 110 U/L (38-126); Anion Gap 8.4 mEq/L (5-15); Aspartate Amino Transferase 149 U/L (17-59); Bilirubin,Total 0.5 mg/dl (0.2-1.3); Blood Urea Nitrogen 14 mg/dl (9-20); Calcium 8.7 mg/dl (8.4-10.2); Carbon Dioxide 25 mmol/L (22.0-30.0); Creatinine Clearance Estimated 196 mL/min (50-200); Estimated Glomerular Filt Rate 124 ml/min (>60); GFR (African American) 150 ML/MIN (>60); Globulin 3.2 g/dL (1.3-3.2); Glucose 141 mg/dl (74-100); Lipase 142 U/L (23-300); Total Protein,Serum 6.5 g/dl (6.3-8.2)
[2024-05-10 20:17] LABS: HIV Combo NEGATIVE (Negative)
[2024-05-10 20:23] LABS: Hepatitis C Ab Qual. W/ RFX REACTIVE (Negative)
== END 2024-05-10 19:08 | disposition home or self-care (01) ==
PROVIDERS: Nurse Practitioner; Emergency Provider Student in an Organized Health Care Education/Training Program
DX: T75.4XXA Electrocution, initial encounter (principal); R07.9 Chest pain, unspecified; W86.0XXA Exposure to domestic wiring and appliances, initial encounter; Y93.89 Activity, other specified; Y92.002 Bathroom of unspecified non-institutional (private) residence as the place of occurrence of the external cause
CPT/HCPCS: 71046; 80053; 82550; 83690; 84484; 85025; 86803; 87389; 87522; 93005; 99283

== ENCOUNTER 2024-11-17 14:20 | Outpatient (CLI) | payer MEDICARE, SELFPAY ==
[2024-11-17 16:55] LABS: Microscopic, Urine URINE MICROSCOPIC (MICROSCOPIC)
[2024-11-17 17:31] LABS: Bilirubin,Urine Negative (Negative); Color,Urine YELLOW (Yellow); Glucose,Urine (UA) Negative (Negative); Ketones,Urine Negative (Negative); Leukocyte Esterase,Urine Negative (Negative); PH,Urine 6.0 (5.0-8.5); Protein,Urine Negative (Negative); Specific Gravity, Urine 1.025 (1.005-1.030); Urobilinogen,Urine 2.0 EU/dl (0.2)
[2024-11-17 17:35] LABS: Hematocrit 45.8 % (42.0-52.0); Hemoglobin 16.5 g/dL (14.1-18.0); Immature Granulocytes % 0.4 %; Mean Corpuscular HGB Conc 36.0 g/dL (31.8-35.4); Mean Corpuscular Hemoglobin 31.7 pg (27.0-31.2); Mean Corpuscular Volume 88.1 fl (80-94); Nucleated Red Blood Cells % 0 %; Platelet Count 265 K/mm3 (142-424); Red Blood Count 5.20 M/mm3 (4.60-6.20); Red Cell Distribution Width-SD 40.9 fL; White Blood Count 10.7 K/mm3 (4.8-10.8)
[2024-11-17 17:43] LABS: Bacteria,Urine Trace /lpf; WBC,Urine Occasional #/hpf (0-3)
[2024-11-17 17:44] LABS: Mucus,Urine 1+ /lpf
[2024-11-17 17:47] LABS: INR 0.98 (0.9-1.1); Prothrombin Time 10.9 seconds (10.1-12.5)
[2024-11-17 17:50] LABS: Chloride 104 mmol/L (98-107)
[2024-11-17 17:51] LABS: Albumin Level 3.9 g/dl (3.5-5.0); Potassium 4.1 mmoL/L (3.5-5.1); Sodium 136 mmol/L (136-145)
[2024-11-17 17:53] LABS: Alanine Aminotransferase 155 U/L (12-78); Anion Gap 11.1 mEq/L (5-15); Aspartate Amino Transferase 127 U/L (17-59); Blood Urea Nitrogen 12 mg/dl (9-20); Carbon Dioxide 25 mmol/L (22.0-30.0); Creatinine,Serum 0.60 mg/dl (0.66-1.25); Estimated Glomerular Filt Rate 148 ml/min (>60); GFR (African American) 179 ML/MIN (>60)
[2024-11-17 17:54] LABS: Albumin/Globulin Ratio 1.3 (1.1-1.8); Alkaline Phosphatase 113 U/L (38-126); Bilirubin,Total 0.8 mg/dl (0.2-1.3); Calcium 9.1 mg/dl (8.4-10.2); Globulin 3.0 g/dL (1.3-3.2); Glucose 85 mg/dl (74-100); Total Protein,Serum 6.9 g/dl (6.3-8.2)
[2024-11-17 18:43] LABS: Hepatitis C Ab Qual. W/ RFX REACTIVE (Negative)
--- OUTSIDE RECORDS SUMMARY | 2024-11-18 12:04 | XMS_ITS | Clinical Summary ---
Author Organization [facility] Address [address] [place] [phone] Phone [email or web address] [email or web address] Care Development Administrator Name Role Phone Provider, No Primary Care Provider Unavailabl e Allergies No known active allergies Medications Buprenorphine HCl-Naloxone HCl (SUBOXONE) 8-2 MG per SL film 08/03/2022 Acti ve albuterol HFA 108 (90 Base) MCG/ACT inhaler Inhale 2 puffs every 6 (six) hours if needed for wheezing. Active ibuprofen (MOTRIN) 200 MG tablet Take 200 mg by mouth every 6 (six) hours if needed for mild pain. Active Active Problems Problem Noted Date Diagnosed Date Irritation of both eyes 08/04/2022 Moderate opioid use disorder in early remission on maintenance therapy 12/02/2021 Encounter for occupational health examination Social History Tobacco Use Types Packs/Day Years Used Date Smoking Tobacco: Every Day Cigarettes Smokeless Tobacco: Never Tobacco Cessation:Ready to Q uit: No; Counseling Given: Yes Intimate Partner Violence Answer Date R ecorded Insults You Not on file 08/12/2021 Threatens You Not on file 08/12/2021 Screams at You Not on file 08/12/2021 Physically Hurt Not on file 08/12/2021 Intimate Partner Violence Score Not on file 08/12/2021 Depression Answer Date Recorded PHQ Total Score 0 12/01/2022 Sex and Gender Information Value Date Recorded Sex Assigned at Not on file Legal Sex Male 6:42 PM CDT Gender Identity Not on file Sexual Orientation Not on file Last Filed Vital Signs Vital Sign Reading Time Taken Comments Blood Pressure 116/82 12/29/2022 3:16 PM EDT Pulse 75 12/29/2022 3:16 PM EDT Temperature 36.7 C (98.1 F) 10/25/2022 3:18 PM EDT Respiratory Rate 18 12/29/2022 3:16 PM EDT Oxygen Saturation 98% 12/29/2022 3:16 PM EDT Inhaled Oxygen Concentration - - Weight 90.6 kg (199 lb 12.8 oz) 023 12:35 PM EDT Height 191.6 cm (6' 3.43 ) 08/04/2022 1 2:35 PM EDT Body Mass Index 24.69 08/04/2022 12:35 PM EDT Plan of Treatment Health Maintenance Due Date Last Done Comments Dental Cleaning/Exam 1982 Hepatitis B Immunization (1 of 3 - 19+ 3-dose series) 2001 Tetanus Diphtheria and Pertu ssis Immunization (1 - Tdap) 2001 Covid-19 Immunization (1 - 2 season) 2023 Influenza Immunization (#1) 2024 HIB Immunization Aged Out No longer e ligible based on patient's age to complete this topic HPV Immunization Aged Out No longer e ligible based on patient's age to complete this topic Hepatitis A Immunization Aged Out No longer eligible based on patient's age to complete this topic Pneumococcal: Ped (0 to 5 Yr s) and At-Risk Member (6 to 64 Yrs) Aged Out No longer e ligible based on patient's age to complete this topic Polio Immunization Aged Out No longer eligible based on patient's age to complete this topic Varicella Immunization Aged Out No lo nger eligible based on patient's age to complete this topic Insurance OPT OUT NO COPAY NB Care Teams Development Administrator Relationship Specialty Start Date End Date Provider, Dee EVANSWJACK Anthony [phone] PCP - General Restoration Ecologist 08/04/22
[2024-11-19 08:44] LABS: RPR W/RFX Titers Nonreactive (Nonreactive)
[2024-11-20 09:14] LABS: Hep A Ab, Total Negative (Negative); Hep B Core Ab, Total Positive (Negative); Hep B Surface Ab, Qual Non Reactive (.); Hepatitis B Surface Antigen Negative (Negative)
[2024-11-22 05:09] LABS: ALT (SGPT) P5P 154 IU/L (0-55); Alpha 2-Macroglobulins, Qn 243 mg/dL (110-276); Bilirubin, Total 0.2 mg/dL (0.0-1.2); GGT 90 IU/L (0-65)
[2024-11-24 06:09] LABS: HSV-1 DNA Negative (Negative); HSV-2 DNA Negative (Negative)
== END 2024-11-17 23:59 | disposition home or self-care (01) ==
LOC: LAB.DROPOF 11-18 12:03
PROVIDERS: PCP Nurse Practitioner Family; Visit Provider Nurse Practitioner Family
DX: B19.20 Unspecified viral hepatitis C without hepatic coma (principal); Z20.2 Contact with and (suspected) exposure to infections with a predominantly sexual mode of transmission; Z87.898 Personal history of other specified conditions; L81.8 Other specified disorders of pigmentation
CPT/HCPCS: 80053; 81001; 81596; 82247; 82977; 83521; 84460; 85025; 85610; 86592; 86704; 86706; 86708; 86803; 87340; 87389; 87491; 87522; 87529; 87591; 87661; 87902